=== PATIENT | female | born 1980 | race African-American/Black ===

== ENCOUNTER 2022-08-03 15:50 | Inpatient (IN) | payer MEDICARE, MEDICAID ==
[~2022-08-03] VITALS: Ht 170.2 cm; Wt 83.9 kg
[2022-08-03] MEDS ORDERED: MAGNESIUM/ALUMINUM HYDROXIDE/SIMETHICONE 30ML UDC PO STA (18:26)
[2022-08-03] MEDS ORDERED: ONDANSETRON 4MG ODT PO STA (18:26)
[2022-08-03] MEDS ORDERED: VISCOUS LIDOCAINE 2% 15 ML UDC PO STA (18:26)
[2022-08-03] MEDS ORDERED: FAMOTIDINE 20MG TABLET PO ONE (18:30)
[2022-08-03 18:46] LABS: BASOPHILS % 0.7 % (0.0-2.0); EOSINOPHILS % 0.2 % (0.0-5.0); HEMATOCRIT. 34.2 % (36.0-48.0); HEMOGLOBIN. 10.5 g/dL (12.0-16.0); LYMPHOCYTES % 14.8 % (20.0-50.0); MEAN CORPUSCULAR VOLUME 71.5 fL (81.0-99.0); MEAN PLATELET VOLUME 7.7 fl (7.4-10.4); MONOCYTES % 12.5 % (2.0-8.0); NEUTROPHILS % 71.8 % (40.0-76.0); PLATELET 505 x1000/uL (130-400); RED BLOOD CELL COUNT 4.78 mill/uL (4.2-5.4); RED CELL DISTRIBUTION WIDTH 20.9 % (11.6-14.6)
[2022-08-03 18:58] LABS: CHLORIDE 87 mEq/L (98-107); HCG SCREEN NEGATIVE
[2022-08-03] MEDS ORDERED: SODIUM CHLORIDE 0.9% 1,000 ML IV ONE (19:45)
[2022-08-03] MEDS ORDERED: PANTOPRAZOLE SODIUM 40 MG/VIAL IV ONE (19:45)
[2022-08-03] MEDS ORDERED: POTASSIUM CHLORIDE 20MEQ TABLET SR PO NR (19:45)
[2022-08-03] MEDS ORDERED: POTASSIUM CHLORIDE INJ 40 MEQ in DEXT 5% WATER 250 ML IV NR (21:00)
[2022-08-03] MEDS ORDERED: ONDANSETRON HCL 4MG/2ML INJ IV ONE (21:15)
[2022-08-04] MEDS ORDERED: FAMOTIDINE 20MG/2ML VIAL IV ONE
[2022-08-04] MEDS ORDERED: MAGNESIUM/ALUMINUM HYDROXIDE/SIMETHICONE 30ML UDC PO ONE
[2022-08-04] MEDS ORDERED: FAMOTIDINE 20MG/2ML VIAL IV NR (00:15)
[2022-08-04] MEDS ORDERED: MAGNESIUM/ALUMINUM HYDROXIDE/SIMETHICONE 30ML UDC PO NR (00:15)
[2022-08-04] MEDS ORDERED: GUAIFENESIN 200MG/10ML SUGAR FREE UDC PO PRN (06:15)
[2022-08-04] MEDS ORDERED: TRAMADOL 50MG TABLET PO PRN ×2 (06:15)
[2022-08-04] MEDS ORDERED: ONDANSETRON HCL 4MG/2ML INJ IV PRN (06:15)
[2022-08-04] MEDS ORDERED: ACETAMINOPHEN 325MG TABLET PO PRN (06:15)
[2022-08-04] MEDS ORDERED: DOCUSATE SODIUM 100MG CAPSULE PO PRN (06:15)
[2022-08-04] MEDS ORDERED: MAGNESIUM/ALUMINUM HYDROXIDE/SIMETHICONE 30ML UDC PO PRN (06:15)
[2022-08-04] MEDS ORDERED: KCL 10MEQ/50ML PREMIX 50 ML IV NR ×2 (06:15→18:00)
[2022-08-04 12:00] VITALS: BP 138/78
[2022-08-04] MEDS: DEXT 5%/0.45% NACL KCL 10MEQ/L 1,000 ML IV SCH ×2 (13:23→19:35)
[2022-08-04] MEDS: ENOXAPARIN 30MG/0.3ML SYR SUBCUT SCH (13:40)
[2022-08-04 15:13] VITALS: BP 138/78
[2022-08-04 16:00] VITALS: BP 139/76
[2022-08-04] MEDS: PANTOPRAZOLE SODIUM 40 MG/VIAL IV SCH (16:59)
[2022-08-04] MEDS: METOCLOPRAMIDE HCL 10MG/2ML VIAL IV SCH (17:08)
[2022-08-04 18:15] LABS: CHLORIDE 96 mEq/L (98-107)
[2022-08-04 18:24] LABS: GAMMA GLUTAMYL TRANSPEPTIDASE 20 IU/L (7-32); TOTAL IRON BINDING CAPACITY 333 ug/dL (250-450)
[2022-08-04 18:47] LABS: FERRITIN < 5 ng/mL (10-291)
[2022-08-04 18:51] LABS: VITAMIN B12 SERUM 532 pg/mL (211-911)
[2022-08-05] MEDS: ENOXAPARIN 30MG/0.3ML SYR SUBCUT SCH ×2 (01:21→09:00)
[2022-08-05] MEDS: METOCLOPRAMIDE HCL 10MG/2ML VIAL IV SCH ×2 (06:00)
[2022-08-05] MEDS: DEXT 5%/0.45% NACL KCL 10MEQ/L 1,000 ML IV SCH (08:55)
[2022-08-05] MEDS: PANTOPRAZOLE SODIUM 40 MG/VIAL IV SCH (09:00)
[2022-08-05] MEDS ORDERED: MAGNESIUM OXIDE 400MG TABLET PO SCH (09:45)
[2022-08-05] MEDS ORDERED: POTASSIUM CHLORIDE 20MEQ TABLET SR PO NR (09:45)
[2022-08-05] MEDS ORDERED: NALOXONE HCL 0.4MG/ML VIAL IV PRN (17:00)
[2022-08-06] MEDS ORDERED: ENOXAPARIN 40MG/0.4ML SYR SUBCUT SCH (09:00)
== END 2022-08-05 11:05 | disposition home or self-care (01) | DRG 392 ==
LOC: ER 15:50 → 6WST 23:59 → EDBEDREQ 08-04 00:05 → EDBEDREQTM 08-04 00:05 → ENRESERV 08-04 09:30
PROVIDERS: ADMIT Hospitalist; ATTEND Hospitalist
DX: R11.2 Nausea with vomiting, unspecified (principal); E87.1 Hypo-osmolality and hyponatremia; D50.9 Iron deficiency anemia, unspecified; E87.6 Hypokalemia; F12.10 Cannabis abuse, uncomplicated; F31.9 Bipolar disorder, unspecified; F17.210 Nicotine dependence, cigarettes, uncomplicated; E86.0 Dehydration; I10 Essential (primary) hypertension; Z82.49 Family history of ischemic heart disease and other diseases of the circulatory system
CPT/HCPCS: 36415; 74176; 76705; 80048; 80053; 82607; 82728; 82746; 82977; 83036; 83540; 83550; 83735; 84703; 85025; 85044; 99285; C9113; J1650; J2405; J2765; J3480; J3490; J7060; Q0162

== ENCOUNTER 2022-10-26 12:19 | Emergency (ER) | payer MEDICARE, MEDICAID ==
[~2022-10-26] VITALS: Ht 170.2 cm; Wt 73.0 kg
[2022-10-26 12:49] VITALS: BP 103/59
[2022-10-26 14:21] LABS: BASOPHILS % 0.2 % (0.0-2.0); CHLORIDE 95 mEq/L (98-107); EOSINOPHILS % 0.2 % (0.0-5.0); HEMATOCRIT. 31.2 % (36.0-48.0); HEMOGLOBIN. 9.6 g/dL (12.0-16.0); LYMPHOCYTES % 12.6 % (20.0-50.0); MEAN CORPUSCULAR HEMOGLOBIN 21.8 pg (28.0-32.0); MEAN CORPUSCULAR VOLUME 70.6 fL (81.0-99.0); MEAN PLATELET VOLUME 7.7 fl (7.4-10.4); MONOCYTES % 9.4 % (2.0-8.0); NEUTROPHILS % 77.6 % (40.0-76.0); PLATELET 511 x1000/uL (130-400); RED BLOOD CELL COUNT 4.42 mill/uL (4.2-5.4); RED CELL DISTRIBUTION WIDTH 19.4 % (11.6-14.6)
[2022-10-26] MEDS ORDERED: MAGNESIUM/ALUMINUM HYDROXIDE/SIMETHICONE 30ML UDC PO STA (14:27)
[2022-10-26] MEDS ORDERED: DICYCLOMINE 10 MG/5 ML ORAL SYR PO STA (14:27)
[2022-10-26 14:28] LABS: CLARITY URINE CLEAR (CLEAR); COLOR URINE YELLOW (YELLOW); KETONES URINE 1+ (NEGATIVE); LEUKOCYTE ESTERASE URINE TRACE (NEGATIVE); NITRITE URINE NEGATIVE (NEGATIVE); OCCULT BLOOD URINE NEGATIVE (NEGATIVE); PROTEIN URINE NEGATIVE (NEGATIVE); SPECIFIC GRAVITY URINE 1.002 (1.005-1.030); UROBILINOGEN URINE 0.2 E.U./dL (0.2-1.0)
[2022-10-26] MEDS ORDERED: FAMO-135 MT (14:48)
[2022-10-26] MEDS: VISCOUS LIDOCAINE 2% 15 ML UDC PO STA ×2 (14:52→15:11)
== END 2022-10-26 15:26 | disposition home or self-care (01) ==
LOC: ER 12:42
DX: K21.9 Gastro-esophageal reflux disease without esophagitis (principal); F31.9 Bipolar disorder, unspecified; F12.10 Cannabis abuse, uncomplicated
CPT/HCPCS: 36415; 80053; 81003; 81025; 85025; 99283